=== PATIENT | female | born 1990 | race American Indian/Alaskan Native ===

== ENCOUNTER 2017-03-02 14:45 | Outpatient (CLI) | payer MEDICAID ==
[2017-03-02 19:05] LABS: Hematocrit 35.6 % (30.3-42.9); Hemoglobin 11.7 gm/dl (10.1-14.3); Mean Corpuscular HGB Conc 33 % (30-34); Mean Corpuscular Hemoglobin 30 pg (28-32); Mean Corpuscular Volume 92 fl (79-97); Platelet Count 179 K/mm3 (140-440); Red Blood Count 3.88 M/mm3 (3.65-5.03); Red Cell Distribution Width 14.1 % (13.2-15.2)
[2017-03-02 19:23] LABS: Creatinine 24 Hour,Urine 2.7 (0.8-2.8); Creatinine,Urine 130.9 mg/dL (0.1-20.0)
[2017-03-02 19:28] LABS: Alanine Aminotransferase 7 units/L (7-56)
[2017-03-02 19:34] LABS: Uric Acid 3.6 mg/dL (3.5-7.6)
[2017-03-02] MEDS ORDERED: TYLENOL PO PRN (19:46)
[2017-03-02 19:51] VITALS: BP 137/77
[2017-03-02] MEDS ORDERED: LACTATED RINGERS 1,000 ML IV SCH (20:00)
== END 2017-03-02 20:18 | disposition home or self-care (01) ==
LOC: TRG 14:45
PROVIDERS: ATTEND Obstetrics & Gynecology
DX: Z34.93 Encounter for supervision of normal pregnancy, unspecified, third trimester (principal); Z3A.35 35 weeks gestation of pregnancy
CPT/HCPCS: 36415; 82565; 82570; 83036; 83615; 84156; 84450; 84460; 84550; 85027; 96360; J7120

== ENCOUNTER 2019-09-24 18:39 | Emergency (ER) | payer MEDICAID ==
[2019-09-24 19:30] VITALS: BP 157/87
--- NOTE | 2019-09-24 19:37 | Emergency Department Report ---
ED Neck Pain HPI Chief Complaint: Extremity Injury, Upper Stated Complaint: CP/COUGH/HEADACHE/WEAKNESS Time Seen by Provider: 09/24/19 19:33 Neck Pain Location: Other Severity: mild Mechanism: Other Symptoms: Yes Pain with Movement, Yes Radiation to Left Upper Ext, Yes Previous History, No Radiation to Right Upper Ext, No Numbness, No Weakness Other History: 28 YO AA FEMALE COMES TO ER WITH SHARP PAIN TO LUE WHEN SHE MOVES WHEN SHE COUGHS. LAYS SOD FOR LIVING. SAW HER PCP WHO GAVE HER MOTRIN. FULL ROM. NO TRAUMA. NO SOB. NO FEVER. NO CHILLS. NO COUGH. NONILL NON TOXIC APPEARING ON EXAM ED Review of Systems ROS: Stated complaint: CP/COUGH/HEADACHE/WEAKNESS Other details as noted in HPI Comment: All other systems reviewed and negative ED Past Medical Hx - Past Medical History Previous Medical History?: Yes Hx Hypertension: Yes (chronic HTN with superimposed pre-eclampsia) Hx Congestive Heart Failure: No Hx Diabetes: No Hx Deep Vein Thrombosis: No Hx Renal Disease: No Hx Sickle Cell Disease: No Hx Seizures: No Hx Asthma: Yes Hx COPD: No Hx HIV: No Additional medical history: Bronchitis - Surgical History Past Surgical History?: Yes Additional Surgical History: X 4 - Family History Family history: no significant - Social History Smoking Status: Never Smoker - Medications Home Medications: Home Medications Medication Instructions Recorded Confirmed Last Taken Type Cyclobenzaprine [Flexeril] 10 mg PO TID PRN #10 tablet 09/24/19 Unknown Rx Ibuprofen [Motrin] 800 mg PO Q8HR PRN #30 tablet 09/24/19 Unknown Rx predniSONE [Deltasone] 20 mg PO DAILY #5 tablet 09/24/19 Unknown Rx Neck Pain Exam - Exam General: Vital signs noted. No distress. Alert and acting appropriately. HEENT: No Facial Pain, No Scalp Tenderness, No Contusion, No Abrasion, No Laceration Neck Pain: No Midline Tenderness, No Right Paraspinal Tenderness, No Left Paraspinal Tenderness, No Right Trapezius Tenderness, No Left Trapezius Tenderness, No Pain with Rotation Right, No Pain with Rotation Left, No Pain with Extension, No Pain with Flexion, No pain with R Lateral Flexion, No Pain with L Lateral Flexion Chest: Yes Clear Lung Sounds, No Pain with Respirations Heart: Yes Regular, No Murmur Back: No Thoracic Tenderness, No Lumbar Tenderness Neuro: No Numbness, No Weakness, No Normal Reflexes, No Radicular Deficits ED Course Vital Signs 09/24/19 19:23 Temperature 98.1 F Pulse Rate 74 Respiratory 16 Rate Blood Pressure 157/87 O2 Sat by Pulse 100 Oximetry ED Medical Decision Making - Medical Decision Making PT EDUCATED ON NERVE PAIN/MUSCLE PAIN DC HOME WITH DC POC INCLUDING RX AND FOLLOW UP WITH DR SIERRA FULL ROM NEURO INTACT REPETITIVE USE INJURY NO TRAUMA Vital Signs 09/24/19 09/24/19 19:23 19:36 Temperature 98.1 F Pulse Rate 74 Respiratory 16 18 Rate Blood Pressure 157/87 O2 Sat by Pulse 100 Oximetry - Differential Diagnosis SOFT TISSUE Critical care attestation.: If time is entered above; I have spent that time in minutes in the direct care of this critically ill patient, excluding procedure time. ED Disposition Clinical Impression: Nerve pain Disposition: DC-01 TO HOME OR SELFCARE Is pt being admited?: No Does the pt Need Aspirin: No Condition: Stable Instructions: Cervical Radiculopathy (ED) Additional Instructions: warm baths and compresses meds as ordered today follow up with Dr Sierra bone doctor for ? MRI referral below Prescriptions: predniSONE [Deltasone] 20 mg PO DAILY #5 tablet Cyclobenzaprine [Flexeril] 10 mg PO TID PRN #10 tablet PRN Reason: Muscle Spasm Ibuprofen [Motrin] 800 mg PO Q8HR PRN #30 tablet PRN Reason: Pain, Moderate (4-6) Referrals: ZINA SIERRA MD [Staff Physician] - 3-5 Days Time of Disposition: 19:36
== END 2019-09-24 19:40 | disposition home or self-care (01) ==
LOC: ED 18:39
DX: M79.2 Neuralgia and neuritis, unspecified (principal); I10 Essential (primary) hypertension; J45.909 Unspecified asthma, uncomplicated; Z98.890 Other specified postprocedural states; Z79.1 Long term (current) use of non-steroidal anti-inflammatories (NSAID); Z79.899 Other long term (current) drug therapy
CPT/HCPCS: 99282